=== PATIENT | female | born 1930 | race Caucasian/White ===

== ENCOUNTER → 2019-06-23 | Outpatient (CLI) | payer OTHER ==
[~2019-06-23] MED LIST: VICODIN ES 7.51 EACH PO
[2019-06-23 14:19] LABS: BASO % 0.8 % (0.0-1.0); EOS # 0.3 10*3/uL (0.0-0.4); EOS % 5.4 % (1.0-4.0); HEMOGLOBIN 8.6 g/dl (12.0-16.0); LYMPH # 1.1 10*3/uL (1.3-4.4); LYMPH % 21.8 % (27.0-41.0); MEAN CORPUSCULAR HGB 23.1 pg (27.0-31.0); MEAN CORPUSCULAR HGB CONC 29.7 g/dl (33.0-37.0); MEAN PLATELET VOLUME 8.1 fl (9.6-12.3); MONO # 0.3 10*3/uL (0.1-1.0); MONO % 6.6 % (3.0-9.0); NEUT # 3.4 10*3/uL (2.3-7.9); NEUT % 65.2 % (47.0-73.0); PLATELET COUNT AUTOMATED 539 10*3/uL (130-400); RED BLOOD COUNT 3.72 10*6/uL (4.10-5.10); RED CELL DISTRI WIDTH 20.1 % (0-14.5); WHITE BLOOD COUNT 5.2 10*3/uL (4.8-10.8)
[2019-06-23 14:34] LABS: ALBUMIN 3.3 gm/dl (3.1-4.5); ALKALINE PHOSPHATASE 84 U/L (45-117); BUN 14 mg/dl (7-24); CHLORIDE 100 mmol/L (98-107); CREATININE 0.74 mg/dL (0.55-1.02); POTASSIUM 3.9 mmol/L (3.5-5.1); SGOT/AST 36 IU/L (3-35); SGPT/ALT 9 U/L (12-78); SODIUM 134 mmol/L (136-145); TOTAL PROTEIN 8.5 gm/dL (6.4-8.2)
[2019-06-23 14:58] LABS: VITAMIN D, 25-HYDROXY 28.8 ng/mL (30-100)
[2019-06-24 18:07] LABS: RHEUMATOID ARTHRITIS FACTOR >650.0 IU/mL (0.0-13.9)
[2019-06-24 21:07] LABS: CCP ANTIBODIES IGG/IGA >250 units (0-19)
== END | disposition home or self-care (01) ==
LOC: RESCLI 13:24
PROVIDERS: Student in an Organized Health Care Education/Training Program
DX: M05.79 Rheumatoid arthritis with rheumatoid factor of multiple sites without organ or systems involvement (principal); J84.10 Pulmonary fibrosis, unspecified; D50.9 Iron deficiency anemia, unspecified; D47.3 Essential (hemorrhagic) thrombocythemia; E03.9 Hypothyroidism, unspecified; Z79.899 Other long term (current) drug therapy; Z88.8 Allergy status to other drugs, medicaments and biological substances

== ENCOUNTER 2019-07-01 20:17 | Inpatient (IN) | payer OTHER ==
[~2019-07-01] VITALS: Ht 157.5 cm; Wt 46.9 kg
[2019-07-01 20:36] VITALS: BP 126/76
[2019-07-01 21:03] LABS: BASO % 0.4 % (0.0-1.0); EOS # 0.3 10*3/uL (0.0-0.4); EOS % 5.7 % (1.0-4.0); HEMATOCRIT 27.3 % (37.0-47.0); HEMOGLOBIN 7.9 g/dl (12.0-16.0); LYMPH # 1.4 10*3/uL (1.3-4.4); LYMPH % 26.1 % (27.0-41.0); MEAN CELL VOLUME 77.6 fl (81.0-99.0); MEAN CORPUSCULAR HGB 22.4 pg (27.0-31.0); MEAN CORPUSCULAR HGB CONC 28.9 g/dl (33.0-37.0); MEAN PLATELET VOLUME 8.2 fl (9.6-12.3); MONO # 0.3 10*3/uL (0.1-1.0); MONO % 5.3 % (3.0-9.0); NEUT # 3.3 10*3/uL (2.3-7.9); NEUT % 62.3 % (47.0-73.0); PLATELET COUNT AUTOMATED 491 10*3/uL (130-400); RED BLOOD COUNT 3.52 10*6/uL (4.10-5.10); RED CELL DISTRI WIDTH 20.8 % (0-14.5); WHITE BLOOD COUNT 5.3 10*3/uL (4.8-10.8)
[2019-07-01 21:14] LABS: ACT PARTIAL THROMBO TIME 26.4 SECONDS (20.0-32.1); INTERNATIONAL NORM RATIO 0.9 (2.0-3.5)
[2019-07-01 21:33] VITALS: BP 117/77
[2019-07-01 21:33] LABS: ALKALINE PHOSPHATASE 81 U/L (45-117); BUN 18 mg/dl (7-24); CHLORIDE 102 mmol/L (98-107); POTASSIUM 4.1 mmol/L (3.5-5.1); SGOT/AST 34 IU/L (3-35); SGPT/ALT 11 U/L (12-78); SODIUM 136 mmol/L (136-145); TOTAL PROTEIN 7.9 gm/dL (6.4-8.2)
[2019-07-01 21:34] LABS: TROPONIN I 0.018 ng/ml (<0.045)
[2019-07-01 22:19] VITALS: BP 135/64
[2019-07-01 23:10] VITALS: BP 153/66
--- NOTE | 2019-07-01 23:10 | NUR ---
Time: 2309 A 88 year old FEMALE admitted to 5E under services of MARIA DEL CARMEN TORRES DO. Pt. arrived via stretcher from ER. Chief complaint: SOB, PULMONARY FIBROSIS. ADMISSION ASSESSMENT IS COMPLETE. NO OPEN WOUNDS PRESENT. GENERALIZED BRUISING. PT IS ALERT AND ORIENTED TO PERSON, PLACE, AND SITUATION. TENDS TO GET THE TIME MIXED UP, STATES "IT ALL RUNS TOGETHER". PT IS RESTING COMFORTABLY ON 2L OF O2 AT 100%. DENIES SOB AND NO SIGNS OF DISTRESS AT THIS TIME. BED ALARM IS ON. CALL LIGHT IN REACH. IV CURRENTLY RUNNING IN [facility]. ABBY BLUM
--- NOTE | 2019-07-01 23:15 | NUR ---
PT WAS NOW PLACED ON CONTINUOUS MONITORING.
[2019-07-01] MEDS ORDERED: VICODIN ES 7.51 EACH PO (23:19)
--- NOTE | 2019-07-02 00:09 | NUR ---
CALLED AND NOTIFIED DR. KIMBLE ABOUT A TROPONIN OF 0.158.
--- NOTE | 2019-07-02 00:21 | NUR ---
CARDIOLOGY CONSULT IS COMPLETE. DR. CHRISTIANSON IS BOWLING BALL MOLDER. AWAITING CALL BACK IN REGARDS OF PLAN OF CARE. DR. CASON WANTS TO BE NOTIFIED OF PLAN.
--- NOTE | 2019-07-02 00:24 | NUR ---
SPOKE WITH DR. CHRISTIANSON, STATES THAT SINCE THE PATIENT DOES NOT HAVE ANY CHEST PAIN, NO NEW ORDERS NEEDED AT THIS TIME. DR. CASON NOTIFIED OF PLAN AND WILL AWAIT NEXT EKG AND TROPONIN TO BE COMPLETED.
--- NOTE | 2019-07-02 02:31 | NUR ---
CALLED DR. CASON IN REGARDS TO A TROPONIN OF 0.267. TOLD TO CALL AND HAVE A STAT EKG DONE AND TO ALSO NOTIFY DR. CHRISTIANSON.
--- NOTE | 2019-07-02 02:36 | NUR ---
CALLED DR. CHRISTIANSON ABOUT TROPONIN OF 0.267. AWAITING CALL BACK.
--- NOTE | 2019-07-02 02:54 | NUR ---
SPOKE WITH DR. CHRISTIANSON, LOVENOX DOSEAGE WAS CHANGED FROM 40MG TO 1MG/KG DOSEAGE. STATED THAT HE WOULD BE IN TO SEE THE PATIENT IN THE AM. CALLED DR. CASON AND NOTIFIED HIM THAT EKG WAS COMPLETE AND UPDATED HIM ON DR. CHRISTIANSON'S PLAN.
[2019-07-02 06:21] LABS: BASO % 0.6 % (0.0-1.0); EOS # 0.4 10*3/uL (0.0-0.4); EOS % 7.4 % (1.0-4.0); HEMATOCRIT 24.6 % (37.0-47.0); HEMOGLOBIN 7.4 g/dl (12.0-16.0); LYMPH # 0.7 10*3/uL (1.3-4.4); LYMPH % 13.4 % (27.0-41.0); MEAN CELL VOLUME 76.2 fl (81.0-99.0); MEAN CORPUSCULAR HGB 22.9 pg (27.0-31.0); MEAN CORPUSCULAR HGB CONC 30.1 g/dl (33.0-37.0); MEAN PLATELET VOLUME 8.1 fl (9.6-12.3); MONO # 0.3 10*3/uL (0.1-1.0); NEUT # 3.8 10*3/uL (2.3-7.9); NEUT % 73.4 % (47.0-73.0); PLATELET COUNT AUTOMATED 442 10*3/uL (130-400); RED BLOOD COUNT 3.23 10*6/uL (4.10-5.10); RED CELL DISTRI WIDTH 20.5 % (0-14.5); WHITE BLOOD COUNT 5.2 10*3/uL (4.8-10.8)
--- NOTE | 2019-07-02 06:26 | NUR ---
DR. BATRES CONSULT COMPLETED.
[2019-07-02 06:53] LABS: ALBUMIN 2.9 gm/dl (3.1-4.5); ALKALINE PHOSPHATASE 70 U/L (45-117); BUN 13 mg/dl (7-24); CHLORIDE 105 mmol/L (98-107); CREATININE 0.65 mg/dL (0.55-1.02); PHOSPHOROUS 2.9 mg/dL (2.5-4.9); POTASSIUM 3.8 mmol/L (3.5-5.1); SGOT/AST 31 IU/L (3-35); SGPT/ALT 9 U/L (12-78); SODIUM 139 mmol/L (136-145); TOTAL PROTEIN 7.5 gm/dL (6.4-8.2)
--- NOTE | 2019-07-02 07:33 | NUR ---
Shift chart check completed.
--- NOTE | 2019-07-02 08:20 | NUR ---
ASSESSMENT DONE -NO WOUNDS SEEN. BUTT BLANCHES, HEEL CORNELIUS. REF CHRISTINA SAYING THEY HURT BUT WEARING HER KNEE HIGH TUBE SOCKS & YELLOW FOOTIES. IVF LITER COMPLETED PER ORDER. MILD TENTING. DENIES ALL C/O PAIN/SOB/DIZZINESS. PER PT SHE WANTS TO GO HOME TODAY.
[2019-07-02 12:00] VITALS: BP 151/76
--- NOTE | 2019-07-02 13:07 | NUR ---
PER PT SHE TAKES PAIN PILL 4X/DAY EVERY DAY AND IF SHE DOESN'T SHE WILL HURT. PER HER & HER DTG SHE HAS TAKEN IT 4X/DAY FOR 30 YEARS. PAIN IS ONLY 1/10 NOW BUT WANTS IT TO PREVENT IT GETTING BAD OR GOING THRU WITHDRAWL
--- NOTE | 2019-07-02 14:26 | NUR ---
PULSE OX ON R/A AT REST 97%. PT. AMBULATED IN THE SIFUENTES ON R/A, PULSE OX MAINTAINED 97%. PT. TOLERATED WALK WELL. PT. RETURNED TO ROOM RESTING IN CHAIR. B/P 151/76. RN NOTIFIED.
--- NOTE | 2019-07-02 14:31 | NUR ---
DR PEREZ MADE AWARE THAT PATIENT & DAUGHTER WANTS DC. PER DR BATRES OK TO DISCHARGE AFTER ASSESSED FOR HOME O2 WHICH WAS DONE & IS NOT REQUIRED - DR PEREZ AWARE.
--- NOTE | 2019-07-02 15:10 | NUR ---
Discharge instructions reviewed with patient/family. Patient receptive and verbalizes understanding. Follow-up care arranged. Written instructions given to patient/family. Hep Lock discontinued. Site asymptomatic. Pressure applied. Sterile dressing applied. ALE ALMAZAN
--- NOTE | 2019-07-04 09:12 | NUR ---
PHYSICAL THERAPY Nursing screen received and chart reviewed. Patient discharged on 07/02/19. Thank you for referral. Lianne Biggs,PT,DPT.
--- NOTE | 2019-07-04 15:42 | NUR ---
Nursing screen received and patient discharged 07/02/19. Thank you. Angie Little OTr/L
== END 2019-07-02 15:11 | disposition home or self-care (01) | DRG 178 ==
LOC: ED 20:17 → EDHOLD 22:42 → 5E 22:47
PROVIDERS: Emergency Medicine Emergency Medical Services; Internal Medicine; ADMIT Internal Medicine
DX: J15.6 Pneumonia due to other Gram-negative bacteria (principal); E44.0 Moderate protein-calorie malnutrition; Z68.1 Body mass index [BMI] 19.9 or less, adult; M06.9 Rheumatoid arthritis, unspecified; J84.10 Pulmonary fibrosis, unspecified; F41.1 Generalized anxiety disorder; E03.9 Hypothyroidism, unspecified; E78.5 Hyperlipidemia, unspecified; D50.9 Iron deficiency anemia, unspecified; E83.41 Hypermagnesemia; Z87.891 Personal history of nicotine dependence; Z85.118 Personal history of other malignant neoplasm of bronchus and lung; Z80.8 Family history of malignant neoplasm of other organs or systems

== ENCOUNTER → 2019-08-30 | Outpatient (CLI) | payer OTHER | END | disposition home or self-care (01) | LOC: CT 08-18 14:00 | DX: J84.10 Pulmonary fibrosis, unspecified (principal); I25.10 Atherosclerotic heart disease of native coronary artery without angina pectoris; K45.8 Other specified abdominal hernia without obstruction or gangrene ==

== ENCOUNTER → 2019-08-31 | Outpatient (CLI) | payer OTHER | END | disposition home or self-care (01) | LOC: RESCLI 00:43 | DX: M05.79 Rheumatoid arthritis with rheumatoid factor of multiple sites without organ or systems involvement (principal); D50.9 Iron deficiency anemia, unspecified; J84.10 Pulmonary fibrosis, unspecified; R46.0 Very low level of personal hygiene; R41.3 Other amnesia; E03.9 Hypothyroidism, unspecified; E78.5 Hyperlipidemia, unspecified; Z74.1 Need for assistance with personal care; Z79.899 Other long term (current) drug therapy; Z88.8 Allergy status to other drugs, medicaments and biological substances; Z87.891 Personal history of nicotine dependence ==

== ENCOUNTER → 2020-03-08 | Outpatient (CLI) | payer OTHER ==
[2020-03-08 16:16] LABS: ALBUMIN 2.6 gm/dl (3.1-4.5); ALKALINE PHOSPHATASE 94 U/L (45-117); BUN 18 mg/dl (7-24); CHLORIDE 107 mmol/L (98-107); CREATININE 0.95 mg/dL (0.55-1.02); LIPASE 115 U/L (73-393); POTASSIUM 4.7 mmol/L (3.5-5.1); SGOT/AST 37 IU/L (3-35); SGPT/ALT 10 U/L (12-78); SODIUM 138 mmol/L (136-145); TOTAL PROTEIN 7.6 gm/dL (6.4-8.2)
== END | disposition home or self-care (01) ==
LOC: LAB 12:01
PROVIDERS: Internal Medicine
DX: M21.161 Varus deformity, not elsewhere classified, right knee (principal); M17.11 Unilateral primary osteoarthritis, right knee; M87.9 Osteonecrosis, unspecified; D50.9 Iron deficiency anemia, unspecified; D47.3 Essential (hemorrhagic) thrombocythemia; M05.79 Rheumatoid arthritis with rheumatoid factor of multiple sites without organ or systems involvement

== ENCOUNTER 2020-03-29 15:38 | Inpatient (IN) | payer OTHER ==
[~2020-03-29] VITALS: Ht 157.4 cm; Wt 50.8 kg
[2020-03-29 15:46] VITALS: BP 94/41
--- NOTE | 2020-03-29 16:03 | NUR ---
DR. GONZALES REQUESTED 2ND EKG TO BE PERFORMED, PATIENT TOLERATED WELL.
[2020-03-29 16:37] LABS: MEAN CELL VOLUME 64.3 fl (81.0-99.0); MEAN CORPUSCULAR HGB 15.4 pg (27.0-31.0); MEAN PLATELET VOLUME 8.8 fl (9.6-12.3); NUCLEATED RED BLOOD CELL 0.5 10*3/uL (0.0-0.0); NUCLEATED RED BLOOD CELL 6.8 % (0.0-0.0); PLATELET COUNT AUTOMATED 449 10*3/uL (130-400); RED BLOOD COUNT 2.66 10*6/uL (4.10-5.10); RED CELL DISTRI WIDTH 22.7 % (0-14.5); WHITE BLOOD COUNT 6.8 10*3/uL (4.8-10.8)
[2020-03-29 16:38] VITALS: BP 109/59
[2020-03-29 16:45] LABS: ACT PARTIAL THROMBO TIME 23.6 SECONDS (20.0-32.1); INTERNATIONAL NORM RATIO 1.1 (2.0-3.5)
[2020-03-29 16:53] LABS: ALBUMIN 2.7 gm/dl (3.1-4.5); CREATININE 2.11 mg/dL (0.55-1.02); POTASSIUM 5.2 mmol/L (3.5-5.1); TOTAL PROTEIN 7.6 gm/dL (6.4-8.2)
[2020-03-29 16:55] LABS: TROPONIN I 0.311 ng/ml (<0.045)
[2020-03-29 17:00] VITALS: BP 89/72
[2020-03-29 17:01] LABS: BASOPHILS 1 % (0-1); PLATELET SUFFICIENCY NORMAL (NORMAL); TOTAL CELLS COUNTED 100 #CELLS
[2020-03-29 17:02] LABS: BURR CELLS FEW; MICROCYTOSIS MODERATE
[2020-03-29 17:15] VITALS: BP 99/79
[2020-03-29 17:30] VITALS: BP 95/55
--- NOTE | 2020-03-29 18:00 | NUR ---
CCA 89, admitted to 5E, under the services of MARYBETH Licona DO with a diagnosis of ANEMIA, WEAKNESS. Chief complaint is WEAKNESS. Patient arrived via bed from ER. Monitor applied. Initial assessment completed. Vital signs taken and recorded. MARYBETH LICONA DO notified of admission to the unit. Orders received. See assessment for past medical history, medications and allergies. Patient and/or family oriented to unit. [place] [id number] visitation policy reviewed. Clothing/patient valuable form completed. GALILEO DAVIS
[2020-03-29 18:03] LABS: HEMATOCRIT 17.1 % (37.0-47.0)
--- NOTE | 2020-03-29 18:06 | NUR ---
MED LIST UPDATED PER POLICY.
--- NOTE | 2020-03-29 18:15 | NUR ---
Informed consent obtained from guardian for Blood transfussion by Dr. PEREZ.
[2020-03-29 18:25] VITALS: BP 115/89
--- NOTE | 2020-03-29 18:26 | NUR ---
VITALS OBTAINED PRIOR TO BLOOD TRANSFUSION.
--- NOTE | 2020-03-29 18:30 | NUR ---
CALLED AT THIS TIME REGARDING PATIENT C/O INCREASED SOB. 02 IN USE VIA 2LNC. PATIENT REPOSITIONED AT THIS TIME. DAUGHTER AT BEDSIDE.
--- NOTE | 2020-03-29 18:40 | NUR ---
CODE BLUE CALLED AT THIS TIME DUE TO PATIENT NOW UNRESPONSIVE.
--- NOTE | 2020-03-29 18:41 | NUR ---
PATIENT DNR-CCA. RESUSCITATIVE EFFORTS TERMINATED PER DAUGHTER (POA).
--- NOTE | 2020-03-29 18:46 | NUR ---
IN TO ASSESS PATIENT AT THIS TIME. PATIENT WITHOUT PULSE, RESPIRATIONS OR BP. ABSENCE OF VITALS COMFIRMED BY 2 RN'S AT 1846.
--- NOTE | 2020-03-29 18:46 | NUR ---
BODY RELEASED TO [facility].
--- NOTE | 2020-03-29 19:41 | NUR ---
[facility] [employer] NOTIFIED AT THIS TIME. OKAY FOR BODY TO BE RELEASED TO HOME. REFERENCE NUMBER: [id number].
--- NOTE | 2020-03-29 22:30 | NUR ---
[facility] HERE TO REFINING STILL OPERATOR BODY.
== END 2020-03-29 22:30 | disposition expired ==
LOC: ED 15:38 → EDHOLD 17:19 → 5E 17:19
PROVIDERS: Emergency Medicine; ADMIT Internal Medicine
DX: I21.4 Non-ST elevation (NSTEMI) myocardial infarction (principal); N17.0 Acute kidney failure with tubular necrosis; E43 Unspecified severe protein-calorie malnutrition; E87.2 Acidosis; F41.9 Anxiety disorder, unspecified; E78.5 Hyperlipidemia, unspecified; E03.9 Hypothyroidism, unspecified; E87.5 Hyperkalemia; D64.9 Anemia, unspecified; D47.3 Essential (hemorrhagic) thrombocythemia; R73.9 Hyperglycemia, unspecified; R74.0 Nonspecific elevation of levels of transaminase and lactic acid dehydrogenase [LDH]; M06.00 Rheumatoid arthritis without rheumatoid factor, unspecified site; J84.10 Pulmonary fibrosis, unspecified; Z66 Do not resuscitate; Z51.5 Encounter for palliative care; Z85.118 Personal history of other malignant neoplasm of bronchus and lung; Z80.9 Family history of malignant neoplasm, unspecified; Z79.899 Other long term (current) drug therapy; Z68.20 Body mass index [BMI] 20.0-20.9, adult